=== PATIENT | female | born 1975 ===

== ENCOUNTER 2018-11-30 08:37 | Emergency (ER) | payer OTHER ==
[2018-11-30 09:18] VITALS: BMI 36.2
--- NOTE | 2018-11-30 09:35 | OBHP ---
Datetime: 11/30/2018 09:00 IP Adm Impression: , intrauterine ; No Active Labor; Intact Membranes IP Admit Plan: Discharge home Admit Comment, IP Provider: 41yo IUP at 19w noticed vaginal spotting after wiping/urinataing . No pain. No FM. No F/U/D PNC: Dr Steele - / MFM appt next week POBGYNH:L 1992 PMH: denies PSH NKA PSoH; denies smoking ETOH drugs A: IUP at 19w Hematuria vs threatened ab PLAN: spoke with PMD...will check UA..send pt to his office...he will schedule sono with MFM today . Pt nstructed to go to office 10am Extremities - PN: Normal Abdomen - PN: Normal Lungs - PN: Normal Heart - PN: Normal Neurologic - PN: Normal HEENT - PN: Normal General - PN: Normal IP Fetus A Comments: Sono +FCA FHR - Baseline A Provider: + Comments, ACOG Physical Exam: ROS: general - no fatigue HEENT: no HOLLINS/no viusal dist CV: no palpitatoins no CP Resp: No SOB; no cough Abd No diarrhea/constipatoin > no F/U/D PE In NAD Abd soft SSE: scant blood/pink dishcarge noted/Cx closed Sono +FCA noted IP Hx Assessment: The History has been Reviewed and is Current IP Chief Complaint: Vaginal bleeding Dilatation, Provider: Hector
--- NOTE | 2018-11-30 09:35 | OBDCSUM ---
Datetime: 11/30/2018 09:22 Discharged to, Provider: Home Follow up at, Provider: Dr Dumont Disch Instr Activity: Normal activity Disch Instr Diet: Regular Discharge Time: 11/30/2018 09:22 Follow up in weeks, Provider: patient will follow up at Dr Dumont's office this am. Disch Referrals: None Disch Activity Restrictions: No sexual activity; Nothing in vagina - Aldan, tampons, douche Discharge Comment, Provider: No intercouse/rest Discharge Diagnosis Prov Other: threatend ab
[2018-11-30 09:56] LABS: SQUAMOUS EPITHIAL 2 /hpf (0-5); URINE BACTERIA RARE (<OCC); URINE BILIRUBIN NEGATIVE (NEGATIVE); URINE BLOOD MODERATE (NEGATIVE); URINE CLARITY SLIGHTY-CLOUDY (Clear); URINE COLOR YELLOW (YELLOW); URINE GLUCOSE (UA) NEG (NEGATIVE); URINE LEUKOCYTE ESTERASE NEG Leu/uL (Negative); URINE PROTEIN NEGATIVE (NEGATIVE); URINE UROBILINOGEN 0.2-1.0 mg/dL (0.2-1.0)
[2018-11-30 13:34] VITALS: BP 127/56; PULSE 75; RESP 18; TEMP 98
== END 2018-11-30 09:34 | disposition home or self-care (01) ==
LOC: H.EROB2 08:37
DX: O26.852 Spotting complicating pregnancy, second trimester (principal); Z3A.19 19 weeks gestation of pregnancy